=== PATIENT | female | born 1995 | race African-American/Black ===

== ENCOUNTER 2016-06-17 16:28 | Emergency (ER) | payer MEDICAID ==
[~2016-06-17] VITALS: Ht 157.5 cm; Wt 59.0 kg
[~2016-06-17 16:28] MED LIST: birth control pills
[2016-06-17 16:30] VITALS: BP 124/77; PULSE 68; RESP 16; TEMP 98.7; O2SAT 98
--- NOTE | 2016-06-17 16:59 | PD ---
Physical Exam Time Seen by Provider: 16:56 Narrative Pt with remote history of migraine headache presents with migraine headache, chest pains exacerbated with deep inspiration, and sensation of shortness of breath. Migraine has been intermittent x 1 month, associated with mild nausea without vomiting; chest pains and SOB x 2-3 days. No fever or chills. Pt denies chance of ; currently on her menses. Took aspirin before she arrived. Data Data Last Documented VS Vital Signs Date Time Temp Pulse Resp B/P Pulse Ox O2 Delivery O2 Flow Rate FiO2 06/17/16 16:30 98.7 68 16 124/77 98 Room Air [facility] Medical Record Reviewed: Yes Supervised Visit with MARIO ALBERTO: No Narrative Course Pt appears without distress. Initial examination in triage. Condition: Stable Merry Barros Jun 17, 2016 16:59
[2016-06-17] MEDS ORDERED: SODIUM CHLOR 0.9% 1000 ML INJ 1,000 ML IV ONE (18:01)
[2016-06-17] MEDS ORDERED: METOCLOPRAMIDE HCL 10 MG/2 ML VIAL IVP ONE (18:15)
[2016-06-17] MEDS ORDERED: SODIUM CHLORIDE 0.9% FLUSH 10 ML FLUSH IVF PRN (18:15)
[2016-06-17] MEDS ORDERED: diphenhydrAMINE HCL 50 MG/ML VIAL IVP ONE (18:15)
[2016-06-17] MEDS ORDERED: ACETAMINOPHEN 325 MG TAB PO ONE (18:15)
[2016-06-17] MEDS ORDERED: RESP: ALBUTEROL 2.5 MG/3 ML NEB (SCH) INH ONE (18:15)
--- NOTE | 2016-06-17 18:21 | RADRPT ---
EXAM DATE/TIME: 06/17/2016 17:59 [place] COMPARISON: No previous studies available for comparison. INDICATIONS : Chest pain MEDICAL HISTORY : None. SURGICAL HISTORY : None. ENCOUNTER: Initial ACUITY: 1 day PAIN SCORE: 4/10 LOCATION: Bilateral chest FINDINGS: A single view of the chest demonstrates the lungs to be symmetrically aerated without evidence of mas s, infiltrate or effusion. The cardiomediastinal contours are unremarkable. Osseous structures are intact. CONCLUSION: Normal one view chest x-ray. Esteban Chang MD on June 17, 2016 at 18:19 Board Certified Radiologist. This report was verified electronically.
[2016-06-17 18:22] VITALS: O2SAT 97
[2016-06-17 18:25] VITALS: O2SAT 98
[2016-06-17 18:32] LABS: AUTOMATED NEUTROPHIL # 6.2 TH/MM3 (1.8-7.7); BASOPHIL # 0.1 TH/MM3 (0-0.2); BASOPHIL % 0.6 % (0.0-2.0); EOSINOPHIL # 0.1 TH/MM3 (0-0.4); HEMATOCRIT 39.8 % (35.0-46.0); HEMO FLAGS DIFF FINAL; LYMPH % 24.2 % (9.0-44.0); LYMPHOCYTE # 2.3 TH/MM3 (1.0-4.8); MEAN CELL VOLUME 92.9 FL (80.0-100.0); MEAN CORPUSCULAR HEMOGLOBIN 31.9 PG (27.0-34.0); MEAN CORPUSCULAR HGB CONC 34.4 % (32.0-36.0); MONO % 8.6 % (0.0-8.0); NEUT % 65.6 % (16.0-70.0); PLATELET COUNT 247 TH/MM3 (150-450); RED BLOOD COUNT 4.29 MIL/MM3 (4.00-5.30); RED CELL DISTRIBUTION WIDTH 13.4 % (11.6-17.2); WHITE BLOOD COUNT 9.5 TH/MM3 (4.0-11.0)
--- NOTE | 2016-06-17 18:35 | PD ---
HPI Chief Complaint: Headache Time Seen by Provider: 17:55 Travel History International Travel<30 days: No Contact w/Intl Traveler<30days: No Traveled to known affect area: No History of Present Illness HPI The patient's 20 years old. She arrives with a triad of complaints including headache shortness of breath and chest pain. She reports a history of migraines. She states she's had a headache for 1 month intermittently as reported by the triage provider. To me she states she's had a headache daily. Aspirin is helpful at times. Location is right frontal/forehead distribution. There is a pounding sensation and a throbbing sensation. She's had no neck stiffness or fever. Additionally she reports shortness of breath and headache for 2 days. Laughing seems to make the headache and the chest pain worse. She reports some wheezing as well. She does get short of breath ambulation as well as with changing of position for example sitting up or lying down. She reports very heavy bleeding with menstruation most recently. PFSH Past Medical History Diminished Hearing: No Immunizations Current: Yes ?: Not LMP: CURRENTLY ON Social History Alcohol Use: No Tobacco Use: No Substance Use: No Allergies-Medications (Allergen,Severity, Reaction): Coded Allergies: No Known Allergies (Unverified , 06/17/16) Reported Meds & Prescriptions Reported Meds & Active Scripts Active Prochlorperazine Maleate 10 Mg Tab 10 Mg PO Q6H PRN Reported [ control pills] Review of Systems Except as stated in HPI: all other systems reviewed are Neg General / Constitutional: No: Fever Cardiovascular: Positive: Chest Pain or Discomfort Respiratory: Positive: Shortness of Breath Physical Exam Narrative GENERAL: 20-year-old female pleasant well-nourished well-developed, speaking in long sentences SKIN: Focused skin assessment warm/dry. HEAD: Atraumatic. Normocephalic. EYES: Pupils equal and round. No scleral icterus. No injection or drainage. ENT: No nasal bleeding or discharge. Mucous membranes pink and moist. NECK: Trachea midline. No JVD. CARDIOVASCULAR: Regular rate and rhythm. No murmur appreciated. RESPIRATORY: No accessory muscle use. Clear to auscultation. Breath sounds equal bilaterally. GASTROINTESTINAL: Abdomen soft, non-tender, nondistended. Hepatic and splenic margins not palpable. MUSCULOSKELETAL: No obvious deformities. No clubbing. No cyanosis. No edema. NEUROLOGICAL: Awake and alert. No obvious cranial nerve deficits. Motor grossly within normal limits. Normal speech. PSYCHIATRIC: Appropriate mood and affect; insight and judgment normal. Data Data Last Documented VS Vital Signs Date Time Temp Pulse Resp B/P Pulse Ox O2 Delivery O2 Flow Rate FiO2 06/17/16 18:25 98 21 06/17/16 18:22 Room Air 06/17/16 17:57 16 06/17/16 16:30 98.7 68 124/77 Vital signs reviewed Orders Complete Blood Count With Diff (06/17/16 18:) Basic Metabolic Panel (Bmp) (06/17/16 18:01) Ecg Monitoring (06/17/16 18:) Iv Access Insert/Monitor (06/17/16 18:) Oximetry (06/17/16 18:) Sodium Chloride 0.9% Flush (Ns Flush) (06/17/16 18:15) Acetaminophen (Tylenol) (06/17/16 18:15) Diphenhydramine Inj (Benadryl Inj) (06/17/16 18:15) Metoclopramide Inj (Reglan Inj) (06/17/16 18:15) Sodium Chlor 0.9% 1000 Ml Inj (Ns 1000 M (06/17/16 18:01) Electrocardiogram (06/17/16 18:01) Chest, Single Ap (06/17/16 18:01) Albuterol Neb (Albuterol Neb) (06/17/16 18:15) Labs Laboratory Tests Test 06/17/16 18:17 White Blood Count 9.5 TH/MM3 Red Blood Count 4.29 MIL/MM3 Hemoglobin 13.7 GM/DL Hematocrit 39.8 % Mean Corpuscular Volume 92.9 FL Mean Corpuscular Hemoglobin 31.9 PG Mean Corpuscular Hemoglobin 34.4 % Concent Red Cell Distribution Width 13.4 % Platelet Count 247 TH/MM3 Mean Platelet Volume 8.7 FL Neutrophils (%) (Auto) 65.6 % Lymphocytes (%) (Auto) 24.2 % Monocytes (%) (Auto) 8.6 % Eosinophils (%) (Auto) 1.0 % Basophils (%) (Auto) 0.6 % Neutrophils # (Auto) 6.2 TH/MM3 Lymphocytes # (Auto) 2.3 TH/MM3 Monocytes # (Auto) 0.8 TH/MM3 Eosinophils # (Auto) 0.1 TH/MM3 Basophils # (Auto) 0.1 TH/MM3 CBC Comment DIFF FINAL Differential Comment Sodium Level 137 MEQ/L Potassium Level 4.5 MEQ/L Chloride Level 104 MEQ/L Carbon Dioxide Level 29.1 MEQ/L Anion Gap 4 MEQ/L Blood Urea Nitrogen 11 MG/DL Creatinine 0.74 MG/DL Estimat Glomerular Filtration 119 ML/MIN Rate Random Glucose 80 MG/DL Calcium Level 8.8 MG/DL MDM Medical Decision Making Medical Screen Exam Complete: Yes Emergency Medical Condition: Yes Medical Record Reviewed: Yes Differential Diagnosis Migraine, anemia, asthma exacerbation, pneumonia, pericarditis, asthma exacerbation, cough variant asthma, GERD, postnasal drip, PE Narrative Course CBC & BMP Diagram 06/17/16 18:17 Last 24 hours Impressions Chest X-Ray 06/17/16 1801 Signed Impressions: Service Date/Time: Friday, June 17, 2016 17:59 - CONCLUSION: Normal one view chest x-ray. Esteban Chang MD EKG normal The patient is resting comfortably and feels better, is alert and in no distress. The patients results and examination findings were discussed. The repeat examination is unremarkable and benign. The history, exam, diagnostic testing, and current condition do not suggest any significant pathology to warrant further testing, continued ED treatment, admission, or surgical evaluation at this point. The vital signs have been stable. The patient does not have uncontrollable pain, intractable vomiting, or other significant symptoms. The patient's condition is stable and appropriate for discharge. The patient will pursue further outpatient evaluation with a primary care physician or other designated or consulting physician as indicated in the discharge instructions. The patient expressed understanding and was agreeable with this plan. Diagnosis Primary Impression: Cephalgia Qualified Code: R51 - Chronic nonintractable headache, unspecified headache type Additional Impressions: Chest pain Qualified Code: R07.89 - Other chest pain Shortness of breath Referrals: Primary Care Physician 2 days Additional Instructions: You have a choice when it comes to health care, and we are glad that you chose [facility]. Hopefully, we have met your expectations on today's visit. You are welcome to return to [facility] at any time, as we are committed to meeting the health care needs of our community. Med/Other Pt SpecificInfo: Prescription(s) given Scripts Prochlorperazine Maleate 10 Mg Tab10 Mg PO Q6H PRN (HEADACHE) #6 TAB Ref 0 Prov:Dxa Yan MD 06/17/16 Disposition: 01 DISCHARGE HOME Condition: Stable Dax Yan MD Jun 17, 2016 18:35
[2016-06-17] MEDS ORDERED: PROC10TA PO (18:59)
[2016-06-17 19:39] LABS: BICARBONATE 29.1 MEQ/L (21.0-32.0)
[2016-06-17 19:42] LABS: POTASSIUM 4.5 MEQ/L (3.5-5.1)
--- NOTE | 2016-06-17 21:48 | EKG ---
Date Performed: 06/17/2016 Time Performed: 18:12:10 PTAGE: 20 years EKG: Possible ectopic atrial rhythm BORDERLINE RIGHT AXIS DEVIATION BORDERLINE ECG COMPARED TO P RIOR ELECTROCARDIOGRAM, Possible ectopic atrial rhythm is present. PREVIOUS TRACING : 01/05/2016 20.40 DOCTOR: Jimmy Mckee Interpretating Date/Time 06/17/2016 21:47:03
== END 2016-06-17 19:15 | disposition home or self-care (01) ==
LOC: NEPD 16:28
DX: R51 Headache (principal); R07.9 Chest pain, unspecified; R06.02 Shortness of breath
CPT/HCPCS: 71010; 80048; 85025; 93005; 94664; 96374; 96375; 99284; J1200; J2765; J7030; J7613